=== PATIENT | female | born 1985 | race Caucasian/White ===

== ENCOUNTER 2017-08-30 11:24 | Inpatient (IN) | payer BC ==
[~2017-08-30] VITALS: Ht 167.6 cm; Wt 88.6 kg
[~2017-08-30 11:24] MED LIST: MOTRIN 600600 MG/TAB PO; PERCOCET 325 MG1 TA2 PO; PRENATAL1 TA1 PO; SLOW FE47.5 MG PO
[2017-10-05] VITALS (20 sets, daily range): BP systolic 94–155; BP diastolic 48–134; PULSE 78–126; TEMP 97.9–98.8
[2017-10-05] MEDS ORDERED: COLACE 100100 MG/CAP PO (06:49)
[2017-10-05] MEDS ORDERED: CALCIUM CARBON650 M2 (06:49)
[2017-10-05 07:06] LABS: BASO % 0.3 % (0.0-2.0); EOS # 0.1 (0.0-0.7); EOS % 0.8 % (0-4.0); GRAN # 6.4 (1.4-6.5); GRAN % 65.6 % (42.2-75.2); HEMATOCRIT 40.1 % (37.0-47.0); HEMOGLOBIN 13.2 g/dl (12.5-16.0); LYMPH # 2.7 (1.2-3.4); LYMPH % 27.1 % (20.0-51.0); MEAN CELL VOLUME 91 fl (80.0-100.0); MEAN CORPUSCULAR HEMOGLOBIN 30 pg (27.0-31.0); MEAN CORPUSCULAR HGB CONC 33 g/dl (33.0-37.0); MEAN PLATELET VOLUME 10.5 fl (7.4-10.4); MONO # 0.6 (0.1-0.6); MONO % 5.7 % (1.7-9.3); PLATELET COUNT 239 K/mm3 (130-400); RED BLOOD COUNT 4.43 M/mm3 (4.10-5.30); WHITE BLOOD COUNT 9.8 K/mm3 (4.8-10.8)
[2017-10-06 07:00] VITALS: BP 109/70; PULSE 92
[2017-10-06 17:11] VITALS: BP 122/68; PULSE 78
[2017-10-06 21:15] VITALS: BP 103/71; PULSE 71; TEMP 98
[2017-10-07 08:30] VITALS: BP 113/70; PULSE 65
[2017-10-07] MEDS ORDERED: IBU600 MG PO (08:44)
[2017-10-07] MEDS ORDERED: PERCOCET 325 MG1 TA2 PO (08:45)
[2017-10-07 16:37] VITALS: BP 120/78; PULSE 93
[2017-10-07 19:30] VITALS: BP 123/80; PULSE 83; TEMP 98.2
[2017-10-08 07:11] VITALS: BP 140/85; PULSE 95; TEMP 98.2
== END 2017-10-08 13:45 | disposition home or self-care (01) | DRG 766 ==
LOC: OB 10-05 06:03 → LDR 10-05 06:59 → OB 10-08 13:45 → LDR 10-09 10:29
PROVIDERS: Obstetrics & Gynecology
PROC: 10D00Z1 Extraction of Products of Conception, Low, Open Approach (ICD-10-PCS; principal; 2017-10-05)
DX: O34.211 Maternal care for low transverse scar from previous cesarean delivery (principal); N85.8 Other specified noninflammatory disorders of uterus; N80.0 Endometriosis of uterus; O69.81X0 Labor and delivery complicated by cord around neck, without compression, not applicable or unspecified; O99.824 Streptococcus B carrier state complicating childbirth; Z3A.39 39 weeks gestation of pregnancy; Z37.0 Single live birth
CPT/HCPCS: J0690; J1100; J1200; J1885; J2250; J2274; J2370; J2405; J2590; J2704; J2765; J2795; J3010; J7120

== ENCOUNTER → 2017-11-02 | Outpatient (CLI) | payer BC ==
[~2017-11-02] MED LIST changes: +CALCIUM CARBON650 M2; +COLACE 100100 MG/CAP PO; +IBU600 MG PO
== END ==
LOC: OLC 10:17
DX: Z39.1 Encounter for care and examination of lactating mother (principal); Z71.89 Other specified counseling

== ENCOUNTER → 2017-11-09 | Outpatient (CLI) | payer BC | LOC: LAC 11:23 | DX: Z39.1 Encounter for care and examination of lactating mother (principal); Z71.89 Other specified counseling ==

== ENCOUNTER → 2017-11-16 | Outpatient (CLI) | payer BC | LOC: LAC 10:16 | DX: Z39.1 Encounter for care and examination of lactating mother (principal); Z71.89 Other specified counseling ==

== ENCOUNTER → 2017-11-23 | Outpatient (CLI) | payer BC | LOC: OLC 10:36 | DX: Z39.1 Encounter for care and examination of lactating mother (principal); Z71.89 Other specified counseling ==

== ENCOUNTER → 2017-11-30 | Outpatient (CLI) | payer BC | LOC: LAC 10:25 | DX: Z39.1 Encounter for care and examination of lactating mother (principal); Z71.89 Other specified counseling ==

== ENCOUNTER 2021-09-05 05:39 | Inpatient (IN) | payer BC ==
[~2021-09-05] VITALS: Ht 168.9 cm; Wt 85.9 kg
[2021-09-05] VITALS (18 sets, daily range): BP systolic 101–130; BP diastolic 56–98; PULSE 74–116; TEMP 97.6–98.8
--- NOTE | 2021-09-05 05:47 | NUR ---
ambulatory to unit for scheduled repeat C/S, accompanied by spouse.
[2021-09-05 06:22] LABS: BASO % 0.3 % (0.0-2.0); EOS # 0.1 K/mm3 (0.0-0.7); EOS % 0.9 % (0-4.0); GRAN # 7.8 K/mm3 (1.4-6.5); GRAN % 69.5 % (42.2-75.2); HEMOGLOBIN 12.8 g/dl (12.5-16.0); LYMPH # 2.6 K/mm3 (1.2-3.4); LYMPH % 23.4 % (20.0-51.0); MEAN CELL VOLUME 88 fl (80.0-100.0); MEAN CORPUSCULAR HEMOGLOBIN 30 pg (27.0-31.0); MEAN CORPUSCULAR HGB CONC 34 g/dl (33.0-37.0); MEAN PLATELET VOLUME 9.9 fl (7.4-10.4); MONO # 0.6 K/mm3 (0.1-0.6); MONO % 5.5 % (1.7-9.3); PLATELET COUNT 245 K/mm3 (130-400); RED BLOOD COUNT 4.34 M/mm3 (4.10-5.30); REDCELL DISTRIBUTION WIDTH-CV 13.4 % (11.5-14.5)
--- NOTE | 2021-09-05 10:00 | NUR ---
3cm unga shaddowing to dressing. Outlined. Will continue to monitor.
[2021-09-06 04:30] VITALS: BP 103/65; PULSE 89; TEMP 98.1
[2021-09-06 07:30] VITALS: BP 102/63; PULSE 81; TEMP 97.3
[2021-09-06] MEDS ORDERED: IBU600 MG PO (11:02)
[2021-09-06] MEDS ORDERED: ROXICODONE 55 MG/TAB PO (11:03)
[2021-09-06 13:00] VITALS: BP 128/68; PULSE 71; TEMP 98
[2021-09-06 16:45] VITALS: BP 106/64; PULSE 70; TEMP 98
[2021-09-06 20:35] VITALS: BP 113/68; PULSE 84; TEMP 97.7
[2021-09-07 08:18] VITALS: BP 118/68; PULSE 72; TEMP 98.1
[2021-09-07 16:24] VITALS: BP 112/64; PULSE 72; TEMP 98.1
[2021-09-07 18:49] VITALS: BP 113/70; PULSE 83; TEMP 98.5
[2021-09-08 07:30] VITALS: BP 118/66; PULSE 77; TEMP 97.9
--- NOTE | 2021-09-08 09:41 | NUR ---
Initial visit attempt; Consult in progress...Tight Cooper left card offering Congratulations for the of their son and information regarding the availability of [facility] at our hospital.
== END 2021-09-08 13:10 | disposition home or self-care (01) | DRG 788 ==
LOC: OB 05:39
PROVIDERS: ADMIT Obstetrics & Gynecology
PROC: 10D00Z1 Extraction of Products of Conception, Low, Open Approach (ICD-10-PCS; principal; 2021-09-05)
DX: O34.211 Maternal care for low transverse scar from previous cesarean delivery (principal); O34.80 Maternal care for other abnormalities of pelvic organs, unspecified trimester; N80.9 Endometriosis, unspecified; Z37.0 Single live birth; Z88.2 Allergy status to sulfonamides; Z3A.39 39 weeks gestation of pregnancy
CPT/HCPCS: J0690; J1200; J1885; J2370; J2405; J2590; J2795; J3010; J7120

== ENCOUNTER → 2021-09-23 | Outpatient (CLI) | payer BC ==
[~2021-09-23] MED LIST changes: +ROXICODONE 55 MG/TAB PO
--- NOTE | 2021-09-23 16:20 | NUR ---
Pt, Aminta Elliott, presents for outpatient consult with 18 day old baby boy, Kristy, for a evaluation as Kristy is slow to gain weight. Kristy was born by repeat c/section on [birth year] and weighed 8#0.8oz (3650 gms). Pt nursed his 2 siblings with moderate difficulty at the start, but she reports by about a month they nursed better. Today Kristy weighs 7#15.5oz (3616 gms). Pt has been pumping and bottle feeding Kristy after offering the breast each feeding since he was 7#9oz at Dr. Del Rosario's office on 09/10/21. Currently pt works with Kristy at the breast, provides about 3oz EBM by bottle and then pumps. She states she makes enough to meet his needs, but not to collect any extra. Kristy does not open widely, even with LC assist to place more breast in his mouth he does not take the nipple in deeply as it comes out misshapen after he appears to have nursed with swallows. After directly on the right breast he has a gain of 4gms, he is placed back to the breast with an adjustment to his latch, gaining only 2 more grams and then with the nipple shield he has a gain of 6gms. Total nursing time was 20+ minutes and total gain was 12gms. During the latching periods there was significant pushing, arching and fussing from Kristy. After this Kristy was no longer interested in the breast, he was provided 64ml EBM by bottle and was content after. Pt pumped, collecting about 3oz. LC does suck evaluation with a gloved finger. Kristy has an elevated anterior palate that may make it difficult for him to keep the breast in his mouth properly. Once the gloved finger is placed further into his mouth he has a good suck with correct tongue placement. Impression: Kristy does not open widely, resulting in a shallow latch. He has an elevated anterior palate making milk transfer by compression of the nipple against the palate difficult. POC: Continue pumping and bottle feeding, providing 24-27oz per 24 hours. Offer breast after bottle feeding and ample [id number] time to allow relaxation and positive interaction at the breast. F/U: As scheduled with Dr. Del Rosario for well baby exam and prn for weight checks. Pt advised to contact this LC in 1-2 weeks to discuss Kristy's behaviour. Questions invited and answered.
== END ==
LOC: LAC 13:00
DX: Z39.1 Encounter for care and examination of lactating mother (principal); Z71.89 Other specified counseling